=== PATIENT | male | born 1990 | race Two or more races ===

== ENCOUNTER 2018-06-14 18:28 | Emergency (ER) | payer OTHER ==
[~2018-06-14] VITALS: Ht 180.3 cm; Wt 66.2 kg
[2018-06-14] MEDS ORDERED: methylPREDNISolone SOD SUCC 125 MG/2 ML VL IM ONE (18:45)
[2018-06-14] MEDS ORDERED: ALBUTEROL SULF 2.5 MG/0.5ML(0.5%) NEB SOLN NEB ONE (18:45)
[2018-06-14] MEDS ORDERED: IPRATROPIUM BROM 0.5 MG/2.5ML INH SOL NEB ONE (18:45)
[2018-06-14 22:12] VITALS: BP 126/97
[2018-06-14] MEDS ORDERED: cefTRIAXone SOD 1,000 MG VL IM ONE (22:45)
[2018-06-14] MEDS ORDERED: TRIAMCINOLONE 40MG/ML 1ML VIAL IM ONE (22:45)
== END 2018-06-15 00:15 | disposition home or self-care (01) ==
LOC: ER 18:34
DX: J45.909 Unspecified asthma, uncomplicated (principal)
CPT/HCPCS: 71046; 94640; 96372; 99283; J0696; J2930; J3301; J7611; J7644

== ENCOUNTER 2018-09-01 11:01 | Emergency (ER) | payer MEDICAID, OTHER ==
[~2018-09-01] VITALS: Ht 180.3 cm; Wt 64.0 kg
[2018-09-01 11:47] LABS: Basophils # (auto) 0 uL; Basophils % (auto) 0.5 % (0.0-2.0); Eosinophils # (auto) 0.2 uL; Eosinophils % (auto) 4.6 % (0.0-7.0); Hematocrit 47.9 % (41.0-53.0); Hemoglobin 16.1 g/dL (13.5-17.5); Lymphocytes # (auto) 1.1 uL; Lymphocytes % (auto) 23.6 % (10.0-50.0); Mean Corpuscular Hemoglobin 32.6 pg (28.0-32.0); Mean Corpuscular Hgb Conc. 33.6 g/dL (32.0-36.0); Mean Corpuscular Volume 96.8 fL (80.0-100.0); Monocytes # (auto) 0.4 uL; Monocytes % (auto) 9.6 % (0.0-12.0); Neutrophils # (auto) 2.9 uL; Neutrophils % (auto) 61.7 % (37.0-80.0); Nucleated Red Blood Cells % 0.1 %; Platelet Count (auto) 231 10^3/uL (140-450); Red Blood Cells 4.95 10^6/uL (4.5-5.90); White Blood Cell 4.6 10^3/uL (4.4-10.8)
[2018-09-01] MEDS ORDERED: SODIUM CHLORIDE 0.9% 1,000 ML IVB ONE (11:54)
[2018-09-01] MEDS ORDERED: PANTOPRAZOLE 40 MG/10 ML VIAL IV STA (11:54)
[2018-09-01 11:57] LABS: Albumin 4.1 g/dL (3.4-5.0); Potassium 4.6 mmol/L (3.5-5.1)
[2018-09-01] MEDS ORDERED: ONDANSETRON HCL 4 MG/2 ML VIAL IV ONE (12:00)
[2018-09-01] MEDS ORDERED: MORPHINE SULFATE 4 MG/ML SYR/VIAL IV ONE (12:00)
[2018-09-01 12:01] LABS: BUN/Creatinine Ratio 9.1; Total Protein 7.2 g/dL (6.4-8.2)
[2018-09-01 12:24] LABS: Amylase 62 U/L (25-115); Lipase 95 U/L (73-393)
[2018-09-01 13:15] LABS: Urine Bacteria NONE SEEN /hpf (None Seen); Urine Blood Negative /uL (Negative); Urine Specific Gravity 1.018 (1.001-1.035); Urine WBC 1 /hpf (0 - 3)
[2018-09-01 13:41] VITALS: BP 115/76
== END 2018-09-01 13:41 | disposition home or self-care (01) ==
LOC: ER 11:02
DX: K29.00 Acute gastritis without bleeding (principal); F12.188 Cannabis abuse with other cannabis-induced disorder; R11.10 Vomiting, unspecified; J45.909 Unspecified asthma, uncomplicated; Z90.49 Acquired absence of other specified parts of digestive tract
CPT/HCPCS: 36415; 80053; 81001; 82150; 83690; 85025; 94761; 96361; 96374; 96375; 99283; C9113; J2270; J2405; J7030

== ENCOUNTER → 2019-11-02 | Emergency (ER) | payer OTHER | END | disposition left against medical advice (07) | LOC: ER 22:20 | DX: M54.9 Dorsalgia, unspecified (principal); Z53.21 Procedure and treatment not carried out due to patient leaving prior to being seen by health care provider ==

== ENCOUNTER 2021-04-26 14:36 | Emergency (ER) | payer OTHER ==
[~2021-04-26] VITALS: Ht 180.3 cm; Wt 64.4 kg
[2021-04-26 14:45] VITALS: BP 139/96
[2021-04-26 15:35] LABS: Basophils # (auto) 0.1 10 ^3/uL (0-0.2); Basophils % (auto) 0.9 % (0.0-2.0); Eosinophils # (auto) 0.1 10 ^3/uL (0-0.8); Hemoglobin 16.9 g/dL (13.5-17.5); Lymphocytes # (auto) 1.1 10 ^3/uL (0.4-5.4); Lymphocytes % (auto) 18.5 % (10.0-50.0); Mean Corpuscular Hemoglobin 33.5 pg (28.0-32.0); Mean Corpuscular Hgb Conc. 34.6 g/dL (32.0-36.0); Mean Corpuscular Volume 96.8 fL (80.0-100.0); Monocytes # (auto) 0.4 10 ^3/uL (0-1.3); Monocytes % (auto) 7.4 % (0.0-12.0); Neutrophils # (auto) 4.2 10 ^3/uL (1.6-8.6); Neutrophils % (auto) 72.2 % (37.0-80.0); Red Blood Cells 5.06 10^6/uL (4.5-5.90); Red Cell Distribution Width 13.5 % (11.8-14.3); White Blood Cell 5.8 10^3/uL (4.4-10.8)
[2021-04-26 16:14] LABS: Albumin 4.5 g/dL (3.4-5.0); BUN/Creatinine Ratio 10.7; Calcium 9.7 mg/dL (8.5-10.1); Potassium 4.6 mmol/L (3.5-5.1)
[2021-04-26 16:17] LABS: Bilirubin, Total 2.9 mg/dL (0.2-1.0); Total Protein 8.3 g/dL (6.4-8.2)
== END 2021-04-26 20:03 | disposition left against medical advice (07) ==
LOC: ER 14:36
DX: R10.32 Left lower quadrant pain (principal); Z53.21 Procedure and treatment not carried out due to patient leaving prior to being seen by health care provider
CPT/HCPCS: 36415; 80053; 85025